=== PATIENT | male | born 1965 | race African-American/Black ===

== ENCOUNTER 2019-08-19 17:55 | Inpatient (IN) ==
[2019-08-19] MEDS ORDERED: NS 1,000 ML IV ONE (18:49)
[2019-08-19] MEDS ORDERED: CENTRUM SILVER PO ONE (18:52)
--- NOTE | 2019-08-19 18:55 | PROVIDER DOCUMENTATION ---
HPI-Neurological Disorder - General Chief Complaint: Dizziness Stated Complaint: DIZZINESS Time Seen by Provider: 08/19/19 18:26 Source: patient, family Allergies/Adverse Reactions: Patient Allergies Allergy/AdvReac Type Severity Reaction Status Date / Time No Known Allergies Allergy Verified 08/19/19 23:28 Home Medications: Home Medication List Medication Instructions Recorded Confirmed Last Taken Type Allopurinol [Zyloprim] 300 mg PO DAILY #30 tab 08/29/19 Unknown Rx Aspirin 81 mg PO DAILY #30 chewtab 08/29/19 Unknown Rx Cholecalciferol (Vit D3) [Vitamin 10,000 unit PO Q7D #30 cap 08/29/19 Unknown Rx D] Lisinopril [Zestril] 10 mg PO DAILY #30 tab 08/29/19 Unknown Rx Multivit,Fe,Ca,FA & Min [Thera M 1 ea PO DAILY #30 tab 08/29/19 Unknown Rx Plus] - History of Present Illness-Neuro Nature of Presenting Problem: 53 YO M pmh for leukemia, HTN, and chronic alcohol use presents with c/o dizziness that began today. Pt states he usually drinks 10-12 beers daily and has been doing so for the past 5 years. He has not had a drink in the last 3-4 days because he thought he had the flu and was sick. He states he gets dizzy when he stands up. Has not felt this way before. He denies having been in withdrawals before. Severity: reports: moderate Onset/Duration: reports: unsure Similar Symptoms Previously?: No Recently seen or treated by another doctor?: No Review of Systems - Adult - REVIEW OF SYSTEMS - ADULT Constitutional: reports: chills Eyes: reports: no symptoms reported Ears, Nose, Mouth & Throat: reports: no symptoms reported Cardiovascular: reports: no symptoms reported Respiratory: reports: no symptoms reported Gastrointestinal: reports: no symptoms reported Genitourinary: reports: no symptoms reported Musculoskeletal: reports: no symptoms reported Neurological: reports: dizziness/vertigo, loss of balance. denies: tremors Past History - Adult - PAST MEDICAL HISTORY-ADULT Review of Records: reports: Old Records Reviewed, Medications Reviewed, Social history reviewed & non-contributory. Cardiovascular: reports: HTN - FAMILY HISTORY Family History: reviewed, not pertinent - SOCIAL HISTORY Smoking: denies Alcohol Use Frequency: every day Number of drinks per typical drinking period:: 11-15 drinks Living Situation: family Physical Exam- Neurological - Physical Exam-Neuro Initial Vital Signs Reviewed: Yes General Appearance: alert, mild distress Eye Exam: bilateral eye: other (scleral icterus) HENMT: normocephalic/atraumatic, moist mucous membranes Head Injury: no evidence of injury Neck: supple Respiratory: lungs clear, normal breath sounds Cardiovascular: tachycardia Abdominal Exam: non tender, soft. 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 hearing, PERRL Coordination/Gait: negative Romberg's sign Motor/Sensory: no motor deficit, no sensory deficit, no pronator drift Neurologic: grossly normal Integumentary: normal turgor, warm/dry Psych/Mental Status: normal mood/affect, normal thought content, oriented x 3 - Glascow Coma Scale Best Eye Response: (4) open spontaneously Best Verbal Response: (5) oriented Best Motor Response: (6) obeys commands Progress - PLAN OF CARE/RESULTS Progress/Plan/Lab Results: Orders Category Date Time [facility] Routine AdmDCTranf 08/20/19 01:02 Active Activity - Up with Assistance ORDERED Care 08/20/19 01:02 Completed ED: Orthostatic Vital Signs (E DIRECTED Care 08/19/19 18:36 Completed Intake and Output-Strict Q 8-HR ASSESS Care 08/20/19 01:02 Completed Nursing- MD Consult Request ROUTINE Care 08/20/19 01:02 Completed Orthostatic Vital Signs NOW Care 08/19/19 18:03 Completed Saline Loc NOW Care 08/19/19 18:49 Completed Transfuse .Give-Transfuse Care 08/19/19 23:13 Completed Vital Signs Order Q 4-HR ASSESS Care 08/20/19 01:02 Completed Z-Document. for Tele Applied ORDERED Care 08/20/19 01:02 Completed Physician/Provider Consults Routine Cons 08/20/19 01:02 Ordered NPO Diet 08/20/19 01:03 Completed CHEST-2 VIEWS [RAD] Stat Exams 08/19/19 22:31 Completed ANTIBODY IDENTIFICATION [BBK] Stat Lab 08/19/19 19:33 Completed CBC WITH DIFF [HEME] Routine Lab 08/21/19 07:05 Completed CBC WITH ELECTRONIC DIFF [HEME] Stat Lab 08/19/19 19:33 Completed CBC WITH ELECTRONIC DIFF [HEME] Stat Lab 08/19/19 21:16 Completed COMPREHENSIVE METABOLIC PANEL [CHEM] Stat Lab 08/19/19 19:33 Completed Flu Swab [INFLUENZA SCREEN A/B] Stat Lab 08/19/19 19:40 Completed LACTATE, PLASMA [CHEM] Stat Lab 08/19/19 21:16 Completed PRBC [LRPC (RED CELLS)] [BBK] Stat Lab 08/19/19 19:33 Completed TYPE & SCREEN [BBK] Stat Lab 08/19/19 19:33 Completed 0.9% Sodium Chloride Inj [Ns] 1,000 ml Med 08/19/19 18:49 Discontinued IV 999 mls/hr Acetaminophen [Tylenol] Med 08/20/19 01:02 Discontinued 650 mg PO Q6H PRN PRN Multivitamins/Minerals [Centrum Silver] Med 08/19/19 18:52 Discontinued 1 each PO NOW ONE Ondansetron [Zofran] Med 08/20/19 01:02 Discontinued 4 mg IV Q4H PRN PRN Telemetry [OM.EQ] Routine Oth 08/20/19 01:02 Active EKG [EKG] Stat Ther 08/19/19 20:18 Draft Transfer/Admit Order [TRANSFER] Routine Transfer 08/20/19 00:23 Completed Result Diagrams: 08/29/19 07:04 08/29/19 07:04 - REASSESSMENT Reassessment #1 Status: other (labs reviewed.spoke with Dr. Allison who states pt needs blood transfusion for low hemoglobin. will plan for admission) - CONSULTS/PCP/HOSPITALIST Notification #1 *Consult/PCP/Hospitalist*: Spoke with Dr. Han Time Discussed: 22:50 Consult Disposition: Admit, other (admit and transfuse, will see in the morning) #2 Consult: Dr. Shoemaker Time Discussed: 23:13 Consult Disposition: Will see in ED, Admit Departure - Departure Date of Disposition Decision: 08/19/19 Time of Disposition Decision: 22:52 DIAGNOSIS: Anemia, Chronic alcohol use Disposition: ADMITTED INPATIENT 09 Certified Medical Emergency: Emergent Condition: Stable - Critical Care Note This patient required my direct & personal management of CC.: No Attestation - Physician/ DIMA Attestation Patient care was provided by Advanced Practice Provider:: No The physician spent face to face time with patient:: Yes Advanced Practice Provider documentation review:: Supervising physician onsite and consulted in the evaluation and care of this patient. The physician did have a face to face encounter with the patient.
[2019-08-19 20:12] LABS: BASO# 0.02 X1000 (0.0-0.2); EOS# 0.04 X1000 (0.0-0.7); HEMATOCRIT 16.2 % (42.0-52.0); HEMOGLOBIN 4.5 g/dL (14.0-18.0); LYMPH# 137.56 X1000 (1.2-3.4); LYMPH% 92.3 % (20.5-51.1); MCH 38.5 PG (27-31); MCHC 27.8 g/dL (33-37); MONO# 3.13 X1000 (0.11-0.59); MONO% 2.1 % (1.7-9.3); MPV 9.8 FL (7.4-10.4); NEUT# 8.26 X1000 (1.4-6.5); NEUT% 5.6 % (42.2-75.2); PLT 157 X1000 (130-400); RBC 1.17 XMIL (4.7-6.1); WBC 149.01 X1000 (4.8-10.8)
[2019-08-19 20:21] LABS: ESTIMATED GFR > 60
--- NOTE | 2019-08-19 20:21 | EKG Report ---
Test Performed on : 08/19/2019 7:20:39 PM Test Reason : cp Blood Pressure : / mmHG Vent. Rate : 116 BPM Atrial Rate : 116 BPM P-R Int : 124 ms QRS Dur : 080 ms QT Int : 358 ms P-R-T Axes : 076 056 033 degrees QTc Int : 497 ms Sinus tachycardia. Nonspecific ST and T wave abnormality Abnormal ECG When compared with ECG of 19-AUG-2019 18:19, (Unconfirmed) Nonspecific T wave abnormality, worse in Lateral leads Unconfirmed Result
[2019-08-19 20:24] LABS: BANDS 2 % (0-1); LYMPHS 92 % (21-51); NRBC 3 % (0-0); SEGS 6 % (42-75)
[2019-08-19 20:25] LABS: HYPOCHROM 3+
[2019-08-19 20:30] LABS: ANISOCYTOSIS 3+
[2019-08-19 20:38] LABS: AGAP 21; ALB/GLOB RATIO 2.2; ALBUMIN 4.1 g/dL (3.5-5.0); ALKALINE PHOSPHATASE 106 U/L (32-122); BUN 11 mg/dL (8-22); CALCIUM 8.5 mg/dL (8.8-10.2); CHLORIDE 89 mmol/L (98-107); COSMO 258; CREATININE 0.8 mg/dL (0.7-1.2); GLUCOSE 127 mg/dL (70-104); GOT 55 U/L (10-34); GPT 17 U/L (10-44); POTASSIUM 3.7 mmol/L (3.5-5.1); SODIUM 128 mmol/L (136-145); TCO2 18 mmol/L (25-35); TOTAL BILIRUBIN 9.09 mg/dL (0.20-1.00)
[2019-08-19 22:21] LABS: BASO# 0.34 X1000 (0.0-0.2); BASO% 0.2 % (0.0-0.8); EOS# 0.02 X1000 (0.0-0.7); HEMATOCRIT 15.3 % (42.0-52.0); HEMOGLOBIN 4.2 g/dL (14.0-18.0); IMM GRAN# 0.55 X1000 (0.0-0.04); IMM GRAN% 0.4 % (0.0-0.5); LYMPH# 128.37 X1000 (1.2-3.4); LYMPH% 93.2 % (20.5-51.1); MCH 38.2 PG (27-31); MCHC 27.5 g/dL (33-37); MONO# 1.04 X1000 (0.11-0.59); MONO% 0.8 % (1.7-9.3); MPV 10.1 FL (7.4-10.4); NEUT# 7.37 X1000 (1.4-6.5); NEUT% 5.4 % (42.2-75.2); PLT 149 X1000 (130-400); RDW 31.2 % (11.5-14.5); WBC 137.69 X1000 (4.8-10.8)
[2019-08-20] MEDS ORDERED: ZOFRAN IV PRN (01:02)
[2019-08-20] MEDS ORDERED: TYLENOL PO PRN (01:02)
[2019-08-20] MEDS ORDERED: M.V.I.-12 10 ML, FOLIC ACID 1 MG, MAGNESIUM SULFATE 1 GM, THIAMINE 100 MG in NS 1,000 ML IV ONE (01:05)
[2019-08-20] MEDS ORDERED: ATIVAN IV ONE (01:30)
--- NOTE | 2019-08-20 01:42 | HISTORY AND PHYSICAL ---
PRIMARY CARE PHYSICIAN: Dr. Velazquez CHIEF COMPLAINT: Dizziness. HISTORY OF PRESENTING ILLNESS: A 53-year-old male with a history of leukemia, hypertension, chronic alcoholism, who had presented to the emergency department due to the patient having episodes where he was feeling dizzy and almost fainted. He was brought to the emergency department. He had laboratories drawn, which did show he was profoundly anemic. The patient was started blood transfusion in the ED, and he will require admission for further management. At the time of my examination the patient denied any headache, fever, chills, chest pain, shortness of breath, any weight changes, or any blood in stools; however, he states that he still feels somewhat dizzy. PAST MEDICAL HISTORY: Includes leukemia, hypertension, chronic alcoholism. PAST SURGICAL HISTORY: None. ALLERGIES: No known drug allergies. CURRENT MEDICATIONS: He does not recall, nursing staff will reconcile. SOCIAL HISTORY: A [id number] history of smoking. Admits to drinking beers every day. Denies any illicit drug use. FAMILY HISTORY: No history of coronary disease. REVIEW OF SYSTEMS: A fourteen point review of systems is as listed in the HPI. Other review of systems negative. PHYSICAL EXAMINATION: GENERAL: A cooperative friendly male. He is resting more comfortably now. VITAL SIGNS: Temperature 98 degrees, pulse 110, respirations 19, blood pressure 111/54. HEENT: Atraumatic, normocephalic. Extraocular movements are intact. PERRLA. There is some scleral icterus. NECK: No masses. CHEST: Clear to auscultation. CARDIOVASCULAR: Regular rate and rhythm. ABDOMEN: Soft. Positive bowel sounds. EXTREMITIES: No edema. NEUROLOGIC: She is awake, alert and oriented x3. : No bladder distention. SKIN: Warm. LABORATORIES AND STUDIES: WBC is 137.69, hemoglobin is 4.2, hematocrit is 15.3, platelet count 149,000. Sodium 128, potassium 3.9, chloride 89, CO2 is 18, BUN is 11, creatinine 0.8, glucose 127. ASSESSMENT: This is a 53-year-old male with a history of leukemia, hypertension, chronic alcoholism, who had presented to the emergency department due to the patient having episodes where he was dizzy and nearly fainted. He was brought to the emergency department. He was found to be profoundly anemic. Subsequently he will require admission for further management. 1. Anemia unspecified. 2. Leukemia. 3. Hypertension. 4. Chronic alcoholism. PLAN: 1. We will admit the patient to the medical floor with telemetry. 2. The patient was started on blood transfusion, we will continue that. 3. We will monitor hemoglobin and hematocrit closely. 4. We will consult Oncology. 5. We will monitor blood pressure closely. 6. We will give the patient a banana bag. 7. We will put the patient on DVT prophylaxis with SCDs. 8. We will continue to follow, reassess and make further recommendation based on the patient's clinical course. cc: Lionel Shoemaker MD MTDD
[2019-08-20] MEDS ORDERED: NS 500 ML ONE (02:43)
--- NOTE | 2019-08-20 06:41 | Diag Imaging Result Doc PS360 ---
CHEST-2 VIEWS - 08/19/2019 INDICATION: dizziness COMPARISON: None FINDINGS: The lungs are normally expanded and clear. Heart size and mediastinal contours are normal. No pneumothorax or pleural effusion. IMPRESSION: Negative exam. Electronically signed by Jesus Lowe 08/20/2019 6:39 AM
--- NOTE | 2019-08-20 15:08 | PROGRESS NOTE ---
DATE: 08/20/2019 SUBJECTIVE: I evaluated him at bedside. His family members are at bedside. OBJECTIVE: Vital Signs: Temperature of 98.2 degrees, pulse 102, respiratory rate 18, blood pressure 124/60, saturating 99% on room air. General: Mr. Mesa complains of mild shortness of breath and dizziness on physical exertion. He denies any chest pain. He denies any melena. HEENT: He has significant scleral icterus. Lungs: Air entry bilaterally equal. No wheeze, rhonchi, or crackles. Heart: S1, S2 normal. No murmur or gallop. Abdomen: Soft, nontender. Extremities: No lower extremity edema. Neurologic: He is alert and oriented x3. LABORATORY DATA: Suggestive of leukocytosis, macrocytic anemia. He has hyponatremia, hypochloremia, hyperbilirubinemia, lactic acidosis. IMAGING: Chest x-ray did not have acute cardiopulmonary process. ASSESSMENT AND PLAN: 1. Lymphoid leukemia. 2. Anemia. Differential includes bone marrow failure due to leukemia, blood loss anemia due to meloxicam and alcohol use, hemolysis. 3. Hyponatremia, hypochloremia. 4. Lactic acidosis. 5. Alcohol abuse with ongoing active alcohol and tobacco abuse. He is receiving third unit of packed red blood cells, and my plan is to follow up blood count after that. I will also send out hemolysis panel, iron panel, and bilirubin. Appreciate Oncology Team's recommendation. Plan of care discussed with the patient. His questions have been answered. cc: Silvestre London MD [facility]
--- NOTE | 2019-08-20 17:03 | Diag Imaging Result Doc PS360 ---
EXAM: CT THORAX/ABD/PELVIS W/CON 08/20/2019 HISTORY: Hx CLL with Severe leukocytosis TECHNIQUE: This exam was performed using automated exposure control, adjustment of mA or kV according to patient size, and/or use of iterative reconstruction technique. COMMENT: The current study is compared with the previous examination of 03/25/2018 from [facility]. Thorax: There are numerous enlarged supraclavicular nodes bilaterally. This appears worse than on the previous examination there is a node adjacent to the jugular vein on the left on image five of the current study which measures in excess of 2.5 cm. Previously this measured 2.1 cm. The nodes are more numerous in appearance as well. There is bilateral axillary adenopathy which also appears to be worsened. There is a node on the left on image 43 which measures 2.5 cm in AP dimension and which previously was less than 1.9 cm. There is a node in the right axilla on image 49 which has increased in long and short axis dimension, the latter measuring almost 12 mm compared to slightly over 6 mm at the time the previous study. There is mediastinal adenopathy particularly in the aorticopulmonary window and in both ke which has also worsened since the previous study. There is a node in the left hilum on image 59 which measures in excess of 2.2 cm in AP dimension. This measured less than 1.7 cm previously. There is a tiny right pleural effusion in the posterior costophrenic sulcus. There are some patchy groundglass opacities present particularly in the right lower lobe and left upper lobe. This was not the case previously. This may represent pneumonitis, atypical pneumonia, or pulmonary edema. ABDOMEN: There is gastrohepatic adenopathy and periportal adenopathy both of which appear worse than on the previous study. There is extensive retroperitoneal adenopathy and mesenteric adenopathy. The node present on image 82 of the arterial series measures 3 cm in diameter transversely. This previously measured slightly less than 3 cm. The spleen is enlarged measuring 13.4 cm in anterior posterior dimension. Previously it measured 11.1 cm. There is some pericholecystic fluid. There are no apparent stones. This was not the case at the time the previous study. The liver is slightly larger than it was previously measuring 25.3 cm transversely compared to 24.5. There is a right adrenal nodule which was also apparently present at the time the previous study. There is a large portacaval node which in short axis anterior posterior dimension measures 2.3 cm compared to 1.8 cm in short axis previously. The aorta is not distended. There is some atherosclerotic calcification distally. The mesenteric and renal arteries are patent. There is some periportal edema. The kidneys are without evidence of hydronephrosis or mass. The pancreas aside from the surrounding adenopathy is stable in appearance. There is no evidence of bowel obstruction. Pelvis: The appendix is not distended. There is no evidence of free fluid. There is bilateral external iliac and inguinal adenopathy. This is worse than on the previous study. The regional skeleton is stable in appearance. IMPRESSION: Worsened adenopathy and splenomegaly. Patchy groundglass pulmonary opacities. Pericholecystic fluid and mild periportal edema of uncertain significance. Electronically signed by Tk Gold 08/20/2019 5:01 PM
[2019-08-20 18:51] LABS: DIRECT BILIRUBIN 0.9 mg/dL (0.00-0.20); URIC ACID 6.6 mg/dL (3.4-7.0)
[2019-08-20 18:52] LABS: AGAP 14; ALB/GLOB RATIO 1.4; ALBUMIN 3.6 g/dL (3.5-5.0); ALKALINE PHOSPHATASE 90 U/L (32-122); BUN 11 mg/dL (8-22); CHLORIDE 97 mmol/L (98-107); COSMO 263; CREATININE 0.7 mg/dL (0.7-1.2); ESTIMATED GFR > 60; GLUCOSE 112 mg/dL (70-104); GOT 58 U/L (10-34); GPT 20 U/L (10-44); POTASSIUM 3.8 mmol/L (3.5-5.1); SODIUM 131 mmol/L (136-145); TCO2 20 mmol/L (25-35); TOTAL BILIRUBIN 6.18 mg/dL (0.20-1.00); TOTAL PROTEIN 6.2 g/dL (6.3-8.3)
[2019-08-20 18:53] LABS: IRON SATURATION 29 %; TIBC 271 ug/dL; TOTAL IRON 79 ug/dL (53-167); UNBOUND IRON 192 ug/dL (112-346)
[2019-08-20 19:09] LABS: FERRITIN 583 ng/mL (30-400)
[2019-08-20 19:16] LABS: BASO# 0.37 X1000 (0.0-0.2); BASO% 0.3 % (0.0-0.8); EOS# 0.02 X1000 (0.0-0.7); HEMATOCRIT 24.4 % (42.0-52.0); HEMOGLOBIN 7.1 g/dL (14.0-18.0); IMM GRAN# 0.43 X1000 (0.0-0.04); IMM GRAN% 0.3 % (0.0-0.5); LYMPH# 124.44 X1000 (1.2-3.4); LYMPH% 92.1 % (20.5-51.1); MCH 32.7 PG (27-31); MCHC 29.1 g/dL (33-37); MCV 112.4 FL (81-99); MONO# 3.57 X1000 (0.11-0.59); MONO% 2.6 % (1.7-9.3); MPV 9.9 FL (7.4-10.4); NEUT# 6.23 X1000 (1.4-6.5); NEUT% 4.7 % (42.2-75.2); PLT 134 X1000 (130-400); RBC 2.17 XMIL (4.7-6.1); RDW 30.6 % (11.5-14.5); WBC 135.06 X1000 (4.8-10.8)
[2019-08-20 19:27] LABS: HYPOCHROM 3+; LYMPHS 92 % (21-51); NRBC 5 % (0-0); SEGS 8 % (42-75)
[2019-08-21 08:10] LABS: BASO# 0.23 X1000 (0.0-0.2); BASO% 0.2 % (0.0-0.8); EOS# 0.02 X1000 (0.0-0.7); HEMATOCRIT 23.3 % (42.0-52.0); HEMOGLOBIN 6.5 g/dL (14.0-18.0); IMM GRAN# 0.19 X1000 (0.0-0.04); IMM GRAN% 0.2 % (0.0-0.5); LYMPH# 108.51 X1000 (1.2-3.4); LYMPH% 92.7 % (20.5-51.1); MCH 32.3 PG (27-31); MCHC 27.9 g/dL (33-37); MCV 115.9 FL (81-99); MONO# 2.71 X1000 (0.11-0.59); MONO% 2.3 % (1.7-9.3); MPV 9.7 FL (7.4-10.4); NEUT% 4.6 % (42.2-75.2); PLT 120 X1000 (130-400); RBC 2.01 XMIL (4.7-6.1); WBC 117.06 X1000 (4.8-10.8)
[2019-08-21] MEDS ORDERED: MARCAINE 0.5% PF ONE (08:15)
[2019-08-21 08:22] LABS: AGAP 13; ALB/GLOB RATIO 1.9; ALBUMIN 3.6 g/dL (3.5-5.0); ALKALINE PHOSPHATASE 80 U/L (32-122); BUN 11 mg/dL (8-22); CALCIUM 8.2 mg/dL (8.8-10.2); CHLORIDE 100 mmol/L (98-107); COSMO 268; CREATININE 0.6 mg/dL (0.7-1.2); ESTIMATED GFR > 60; GLUCOSE 102 mg/dL (70-104); GOT 49 U/L (10-34); GPT 21 U/L (10-44); POTASSIUM 3.8 mmol/L (3.5-5.1); SODIUM 134 mmol/L (136-145); TCO2 21 mmol/L (25-35); TOTAL BILIRUBIN 6.75 mg/dL (0.20-1.00); TOTAL PROTEIN 5.5 g/dL (6.3-8.3)
[2019-08-21] MEDS ORDERED: DIPRIVAN 1% ONE ×2 (08:23→10:30)
[2019-08-21] MEDS ORDERED: XYLOCAINE-MPF 2% ONE (08:24)
[2019-08-21] MEDS ORDERED: FENTANYL ONE (08:25)
[2019-08-21] MEDS ORDERED: VITAMIN B-1 PO SCH (09:00)
[2019-08-21 10:00] LABS: ANISOCYTOSIS 3+; HYPOCHROM 2+; LYMPHS 92 % (21-51); MONO 2 % (1-9); NRBC 7 % (0-0); POLYCHROM 2+; SEGS 6 % (42-75)
[2019-08-21 10:01] LABS: HOWELL-JOLLY BODIES 1+; POIKILOCYTOSIS 1+
[2019-08-21] MEDS ORDERED: VERSED ONE (10:03)
[2019-08-21 10:47] LABS: FLOW CYTOMETERY SOURCE BONE MARROW; LEUKEMIA LYMPHOMA BY FLOW REFERRED FOR TESTING
[2019-08-21 12:47] LABS: INR 1.21; PROTIME 15.5 Seconds (11.0-16.0); PTT 30.3 Seconds (22.3-41.8)
[2019-08-21 13:02] LABS: RETIC% 33.72 % (0.8-2.1); RETIC-HE 38.7 PG (28.2-36.6)
[2019-08-21] MEDS ORDERED: LASIX IV ONE (14:06)
[2019-08-21] MEDS: THERA M PLUS PO SCH (14:59)
[2019-08-21 15:11] LABS: URINE SOURCE CATH
[2019-08-21 15:15] LABS: BILIRUBIN URINE SMALL (NEGATIVE); BLOOD URINE SMALL (NEGATIVE); COLOR ORANGE; GLUCOSE URINE NEGATIVE (NEGATIVE); KETONE URINE NEGATIVE (NEGATIVE); LEUKOCYTES URINE NEGATIVE (NEGATIVE); NITRITE URINE NEGATIVE (NEGATIVE); PROTEIN URINE TRACE mg/dL (NEGATIVE); SP GRAVITY URINE 1.019; TURBIDITY URINE CLEAR (CLEAR); UR EPITHELIAL CELLS <10 /HPF (<10); URINE BACTERIA NEGATIVE /HPF; URINE RBC <10 /HPF (<10); URINE WBC <10 /HPF (<10); UROBILINOGEN URINE 3 mg/dL (NORMAL)
--- NOTE | 2019-08-21 15:28 | Diag Imaging Result Doc PS360 ---
EXAM: CT HEAD W/O CONTRAST 08/21/2019 HISTORY: Rule out occipital/cerebellar infarct TECHNIQUE: This exam was performed using automated exposure control, adjustment of mA or kV according to patient size, and/or use of iterative reconstruction technique. COMMENT: There is no evidence of mass effect, bleed, or abnormal extra-axial fluid collection. There is what appears to be a lacune in the juan near the left middle cerebellar peduncle. This measures almost 6 mm in diameter. There is a mucous retention cyst in the right sphenoid sinus. The calvarium is intact. IMPRESSION: Lacune in the juan. The possibility of acute ischemia cannot be entirely excluded on the basis of this study and further evaluation with MRI may be desirable. Electronically signed by Tk Gold 08/21/2019 3:26 PM
--- NOTE | 2019-08-21 16:15 | PROGRESS NOTE ---
DATE: 08/21/2019 INTERVAL HISTORY: No acute events overnight. He did have a drop in his hemoglobin and the Oncology team has ordered two units of blood as well as fresh frozen plasma. SUBJECTIVE: Mr. Mesa is denying new complaints. He denies any chest pain, shortness of breath, nausea, vomiting, abdominal pain. He is hungry and wanted to eat. We discussed about his leukemia. I answered all of his questions. We discussed about neck vein engorgement and anemia and I told him that his leukemia is bad enough to kill him. VITALS: Temperature 98.2 degrees, pulse 92, respiratory rate 14, blood pressure 104/53. PHYSICAL EXAMINATION: General: Not in any acute distress. Mouth: Oral cavity is moist. Lungs: Air entry bilaterally equal. No wheeze, rhonchi, or crackles. Cardiovascular: S1, S2 normal. No murmur or gallop. Abdomen: Soft, nontender. Active bowel sounds. Extremities: He does not have any lower extremity edema. Neck: He has significant neck vein distention. Neurological: He is alert and oriented x3. He does appear tremulous, especially in his face and head. Pupils are bilaterally equal, reacting to light. Extraocular movements intact both downwards and laterally of midline. He does have left-sided squint that I did not notice previously. He does have right-sided flattening of nasolabial fold. His cough and speech appear normal. His tongue is midline. Sensation is equal bilateral upper and lower extremity and face. Shoulder shrug is normal. His power is 5/5 in both upper and lower extremities at shoulder, knee, interphalangeal, hip, and elbow joints as well as ankle joints. Babinski has plantar flexion. Reflexes are 2+ bilateral biceps and knee jerks. [id number] test nose testing is normal bilaterally. LABS: Suggestive of WBC of 117,000, hemoglobin 6.5, platelet 120,000. He has elevated D-dimer. Electrolytes are normal. He continues to have hyperbilirubinemia, elevated lactate dehydrogenase and low haptoglobin. Microbiology: Influenza screen has been negative. IMAGING: Chest, abdomen, pelvis CT had detected adenopathy, worsened adenopathy and splenomegaly, patchy ground-glass pulmonary opacities, pericholecystic fluid and mild peripheral edema of uncertain significance. ASSESSMENT AND PLAN: 1. Lymphoid leukemia. The patient was diagnosed many years ago but was noncompliant with followup. He is status post bone marrow biopsy on 08/21/2019. Appreciate Oncology team's recommendation regarding treatment. 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 Start patient on IV antibiotics. 3. Thrombocytopenia: No signs of active bleeding. I will watch the platelet counts. 4. Suspicion of cerebrovascular accident. I will follow up with STAT head CT to rule out any brainstem or occipital infarct. In future I may consider getting an MRI. 5. Alcohol abuse with delirium tremens. I will start patient on high-dose intravenous thiamine as well as Librium. DISPOSITION: Mr. Mesa's condition is marginal and considering his leukemia, hemolytic anemia, and now neurological abnormalities along with delirium tremens, I will get a STAT head CT and transfer him to [facility]. Plan of care discussed with Mr. Mesa and his mother at bedside. They were allowed to ask questions and all of their questions were satisfactorily answered. cc: Silvestre London MD MTDD
--- NOTE | 2019-08-21 16:47 | Diag Imaging Result Doc PS360 ---
EXAM: MRI BRAIN W/O CONTRAST INDICATION: Evaluate for Acute CVA in Randa COMPARISON: CT head dated 08/21/2019. No prior dedicated MRI is available for comparison. FINDINGS: There is no evidence of acute infarct. There is a chronic lacunar infarct involving the randa on the left that was also seen on the previous CT. There are a few patchy areas of T2/FLAIR hyperintensity in the subcortical white matter bilaterally suggesting minimal microangiopathy. There is no discrete intracranial mass, mass effect, or intracranial hemorrhage. There are several prominent lymph nodes seen incidentally in the parotid glands and the suboccipital region in the soft tissues related to known CLL. Surrounding soft tissues and bony structures are essentially unremarkable, otherwise. IMPRESSION: 1.Very minimal white matter microangiopathy and a chronic lacunar infarct involving the randa on the left. No evidence of acute intracranial pathology. 2.Incidental soft tissue lymphadenopathy in the neck and at the skull base in the soft tissues consistent with known CLL. Electronically signed by Fausto Forrester 08/21/2019 4:44 PM
--- NOTE | 2019-08-21 16:52 | Diag Imaging Result Doc PS360 ---
EXAM: MRA BRAIN W/O CONTRAST INDICATION: Rule out CVA TECHNIQUE: 3-D [id number] axial images through the [place] of [place] and 3-D MIPS were obtained. COMPARISON: None. FINDINGS: The arteries comprising the [place] of [place] including the anterior, middle, and posterior cerebral arteries exhibit no flow-limiting stenosis, vascular malformation, or cerebral aneurysm. The distal ICAs and the distal vertebral arteries are widely patent. The basilar artery is widely patent. IMPRESSION: No evidence of cerebral flow-limiting stenosis. Electronically signed by Fausto Forrester 08/21/2019 4:50 PM
[2019-08-21] MEDS ORDERED: SOLU-MEDROL IV ONE (17:00)
--- NOTE | 2019-08-21 18:12 | HEMO/ONC CONSULTATION ---
DATE: 08/20/2019 ADMITTING PHYSICIAN: Dr. Lionel Shoemaker REQUESTING PHYSICIAN: Dr. Lionel Shoemaker CHIEF COMPLAINT: History of CLL, now with probable acute leukemia. HISTORY OF PRESENT ILLNESS: Mr. Sohail Mesa is a 53-year-old male with a history of chronic leukemia, hypertension, chronic alcoholism. The patient presented to [facility] Emergency Department with complaints of episodes of dizziness and near fainting. The patient was found to be profoundly anemic on admission with a hemoglobin of 4.2. Additionally, white blood cell count was found to be profoundly elevated to 137.69. The patient does have a history of CLL followed by Dr. Duran of [facility]. The patient, however, is noncompliant with followups. Currently the patient is lying supine in bed. He denies recent fever or chills. He denies weight loss. He is on alcohol withdrawal precautions. We are consulted for probable transformation into acute leukemia. PAST MEDICAL HISTORY: As in HPI. PAST SURGICAL HISTORY: None. MEDICATIONS ON ADMISSION: The patient does not recall. Reconciliation is pending. ALLERGIES: No known drug allergies. REVIEW OF SYSTEMS: A 14 point review of systems was obtained and is negative except for mentioned in HPI. PHYSICAL EXAMINATION: General: Mr. Mesa is a 53-year-old male lying supine in bed in no immediate distress. Vital Signs: Temperature 98.3, blood pressure 134/73, heart rate and heart rate 103, respirations 18, O2 saturation 100% on room air. HEENT: Normocephalic, atraumatic. Mucous membranes pale and moist. Sclerae is icteric. Extraocular movements intact. Neck: Supple. Lungs: Clear to auscultation bilaterally. Chest expansion equal bilaterally. Cardiovascular: S1, S2 is heard without murmur, rub or gallop. Abdomen: Nondistended. Extremities: Without clubbing, cyanosis, or edema. Dermatologic: No rashes, bruises or lesions. Neurologic: The patient is awake, alert, oriented x3. He has no focal deficit. LABORATORY DATA: Hemoglobin 4.2, hematocrit 15.3, white blood cell count 137.69, platelets 149. ANC 7.37, ALC 128.37, bilirubin 9.09, alkaline phosphatase 106, AST 55, ALT 17. IMAGING STUDIES: Chest x-ray reveals negative acute abnormality. ASSESSMENT AND PLAN: 1. History of chronic lymphocytic leukemia, now with likely progression to acute leukemia. We will check a CT of the chest, abdomen, and pelvis at this time. We will order a bone marrow biopsy and aspiration. Treatment plan to follow workup. 2. Chronic EtOH abuse, known. The patient is currently on withdrawal precautions. 3. Profound anemia. The patient is for 3 units packed red blood cells. Would monitor. If the patient needs additional packed red blood cells, will also transfuse fresh frozen plasma. 4. Hypertension, stable at this time. 5. Hyperbilirubinemia. We will check a CT of the chest, abdomen, and pelvis at this time. 6. We will follow along with you and make further recommendations pending outcomes. This is Amalia Calle nurse practitioner dictating a consult on Sohail Mesa for Dr. Andrey Solis. The above reflects the history, exam, assessment, and plan of Dr. Solis. Dictated by ANTON Amato for Andrey Solis MD cc: ANTON Amato MD
[2019-08-21] MEDS: THIAMINE 500 MG in NS 50 ML IV SCH ×2 (18:18→23:19)
[2019-08-21] MEDS: LIBRIUM PO SCH (18:24)
[2019-08-21] MEDS ORDERED: PREDNISONE PO SCH (21:00)
[2019-08-22 06:29] LABS: CHOLESTEROL 83 mg/dL (0-200); HDL 22 mg/dL (35-55); LDL 44 mg/dL; TRIGLYCERIDES 84 mg/dL (39-160); VLDL 17 mg/dL
[2019-08-22 06:34] LABS: AGAP 12; ALB/GLOB RATIO 1.3; ALBUMIN 3.2 g/dL (3.5-5.0); ALKALINE PHOSPHATASE 75 U/L (32-122); BUN 10 mg/dL (8-22); CHLORIDE 100 mmol/L (98-107); COSMO 271; CREATININE 0.5 mg/dL (0.7-1.2); ESTIMATED GFR > 60; GLUCOSE 124 mg/dL (70-104); GOT 39 U/L (10-34); GPT 21 U/L (10-44); POTASSIUM 3.8 mmol/L (3.5-5.1); SODIUM 135 mmol/L (136-145); TCO2 23 mmol/L (25-35); TOTAL BILIRUBIN 4.95 mg/dL (0.20-1.00); TOTAL PROTEIN 5.7 g/dL (6.3-8.3)
[2019-08-22] MEDS: THIAMINE 500 MG in NS 50 ML IV SCH ×3 (09:01→23:36)
[2019-08-22] MEDS: PREDNISONE PO SCH ×2 (09:01→20:36)
[2019-08-22] MEDS: THERA M PLUS PO SCH (09:01)
[2019-08-22] MEDS: LIBRIUM PO SCH ×3 (09:01→16:09)
--- NOTE | 2019-08-22 10:45 | CONSULTATION ---
DATE OF CONSULTATION: 08/22/2019 HISTORY OF PRESENT ILLNESS: Mr. Mesa has CLL, hypertension, history of ethanol use disorder. He had not been taking his medicines in recent months. He presented with WBC 135,000, hemoglobin 4.2, sodium 135. He had reported some dizziness. He reports he awoke 4 days ago feeling well. Shortly after getting up, while walking, he felt suddenly dizzy. There was a little bit of lightheadedness and "about to blackout" sensation. He felt a little bit clumsy in the limbs, but he did not notice focal weakness, focal clumsiness, vision disturbance, speech difficulty, swallowing trouble or headache. He did not collapse. There was never altered consciousness or altered awareness. He sat down and rested for 10 or 15 minutes and felt better. Then, he was able to walk without difficulty. Eventually, he presented to the hospital and was admitted. There is no history of prior clinical stroke, prior similar episode of dizziness, other neurologic event. He has had some headaches, but did not have headache when chief complaint occurred. He reports he had not used ethanol in at least 24 hours when this episode occurred. Brain MRI showed lacunar lesion in the left juan. This appears old. Brain MRA was unremarkable. We do not have any prior scans for comparison here. He reports having a scan of his head 5 or 6 years ago in [place] when he presented with problems related to his hypertension. He does not recall having any focal neurologic features then. He has been afebrile here. Systolic blood pressures have ranged 90s-130s. PHYSICAL EXAMINATION: Neurologic: On exam, Mr. Mesa is awake, alert, attentive, appropriate. Speech is not dysarthric. Language function is intact. Memory is good. Head and neck are unremarkable. Visual leon are full to confrontational finger counting. Extraocular movements are full. Facial motility is symmetric. Tongue is midline. Gag is intact. He can hear. Shoulder shrug is good bilaterally. He has difficulty raising his right arm at the shoulder. Strength is normal in the left limbs. I do not find any definite weakness in the right limbs beyond what appears to be shoulder joint problem. There is normal power in the triceps, wrist extensor, finger extensors and spreaders bilaterally. Tone is equal in the arms and legs. He did well on [id number] testing bilaterally. He reports symmetric sensation over the limbs. I did not test his gait. IMPRESSION: 1. Dizziness without focal features. This occurred while standing and he felt better when sitting. I do not think this was a primary central nervous system event. 2. 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 He may or may not have ever been symptomatic with this lesion, but I feel certain this is not the explanation for his episode 4 days ago. 3. We discussed his risk factors for cerebrovascular ischemic problems. I strongly encouraged him to quit smoking cigarettes, to keep appointments with his doctors and to take his medicines as directed. He reports taking aspirin 81 mg daily in the past and if there is not Heme-Onc contraindication, I think that could be resumed. I do not have any other suggestion right now. Thanks for asking Neurology to see Mr. Mesa. cc: MD MONO Cali III
--- NOTE | 2019-08-22 12:26 | ECHO REPORT ---
ORDER DATE: 08/21/2019 INDICATION: Thrombus versus vegetation FINDINGS: 1. Right atrium appears normal in size. 2. Mild tricuspid regurgitation. RV systolic pressure of 37. 3. Normal RV size and systolic function. 4. No significant pulmonic insufficiency. 5. Normal left atrial size with a volume index of 20. 6. No mitral valve prolapse. Mild mitral regurgitation. There is thickening of the mitral leaflets with a mean gradient of 4.6 suggesting the possibility of mild mitral stenosis. 7. Normal LV size, end-diastolic dimension of 4.1 cm. Normal wall thicknesses with a posterior and interventricular septal wall thickness is 0.7 cm each. Normal LV systolic function. Estimated EF is 65% to 70% with normal wall motion. 8. Aortic valve opens well. It is trileaflet. No evidence of stenosis or insufficiency. 9. Aorta appears normal in visualized segments. 10. No pericardial effusion seen. 11. Normal diastolic function. 12. Normal IVC size. 13. If clinical suspicion for valvular vegetation is high, would recommend alternative modality for assessment such as transesophageal echocardiogram. I do not clearly see evidence of adherent valvular vegetation or thrombus. cc: MD Silvestre López MD
[2019-08-22 15:27] LABS: BASO# 0.27 X1000 (0.0-0.2); BASO% 0.2 % (0.0-0.8); HEMATOCRIT 23.1 % (42.0-52.0); HEMOGLOBIN 6.4 g/dL (14.0-18.0); IMM GRAN# 0.17 X1000 (0.0-0.04); IMM GRAN% 0.1 % (0.0-0.5); LYMPH# 114.93 X1000 (1.2-3.4); LYMPH% 93.1 % (20.5-51.1); MCH 32.8 PG (27-31); MCHC 27.7 g/dL (33-37); MCV 118.5 FL (81-99); MONO# 1.71 X1000 (0.11-0.59); MONO% 1.4 % (1.7-9.3); MPV 9.8 FL (7.4-10.4); NEUT% 5.2 % (42.2-75.2); PLT 116 X1000 (130-400); RBC 1.95 XMIL (4.7-6.1); RDW 32.4 % (11.5-14.5)
[2019-08-22 15:28] LABS: WBC 123.48 X1000 (4.8-10.8)
[2019-08-22 16:52] LABS: LYMPHS 89 % (21-51); NRBC 1 % (0-0); SEGS 8 % (42-75)
[2019-08-22 16:53] LABS: ANISOCYTOSIS 3+; HYPOCHROM 3+
[2019-08-22] MEDS: ZYLOPRIM PO SCH (17:38)
--- NOTE | 2019-08-22 18:54 | PROGRESS NOTE ---
DATE: 08/22/2019 INTERVAL HISTORY: No acute events overnight. SUBJECTIVE: Mr. Mesa is feeling better. He denies new complaints. His family is at bedside. He denies chest pain, shortness of breath, nausea, vomiting, abdominal pain. He is about to have a bowel movement. We discussed about acute leukemia, answered all of his questions. VITALS: Temperature 98.8 degrees, pulse 96, respiratory 18, blood pressure acceptable saturating 98% on nasal cannula. PHYSICAL EXAMINATION: Not in acute distress. Oral cavity is moist. Air entry bilaterally equal. No wheeze or crackles. S1 normal, no murmur or gallop.Abdomen: Soft, nontender. No hepatosplenomegaly. No lower extremity edema. He has significant cervical and supraclavicular lymphadenopathy. He is alert and oriented x3. LABS: Suggestive of elevated WBC to 123,000, hemoglobin 6.4, platelet 116,000, BUN 10, creatinine 0.5, bilirubin of 4.9. Microbiology no new data. Brain MRA had no evidence of cerebral flow-limiting stenosis. Brain MRI had very minimal white matter microangiopathy and chronic lacunar infarct involving juan on the left, no evidence of acute intracranial pathology. ASSESSMENT AND PLAN: 1. 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 Patient was previously noncompliant with her medication. Oncology team is planning chemotherapy on early next week, he is status post bone marrow biopsy in August 21. I will start him on allopurinol prophylactically. 2. Autoimmune hemolytic anemia. Continue oral steroids and follow up blood counts. 3. Thrombocytopenia currently stable. I will continue to monitor him with serial blood counts. 4. Chronic appearing juan cerebrovascular accident. He denies any known history of cerebrovascular accident though, I will start him on aspirin for secondary cerebrovascular accident prophylaxis. His cholesterol level is significantly low at the moment so I would avoid anti lipid medication. 5. Alcohol abuse with mild delirium tremens. Continue high-dose intravenous thiamine as well as Librium. DISPOSITION: I will continue to monitor patient inside PVC unit. Plan of care discussed with patient and multiple family members. All of their questions have been satisfactorily answered. cc: Silvestre London MD [facility]
[2019-08-23 07:00] LABS: AGAP 10; ALB/GLOB RATIO 1.6; ALBUMIN 3.3 g/dL (3.5-5.0); ALKALINE PHOSPHATASE 69 U/L (32-122); BUN 10 mg/dL (8-22); CALCIUM 8.2 mg/dL (8.8-10.2); CHLORIDE 102 mmol/L (98-107); COSMO 274; CREATININE 0.6 mg/dL (0.7-1.2); ESTIMATED GFR > 60; GLUCOSE 111 mg/dL (70-104); GOT 30 U/L (10-34); GPT 20 U/L (10-44); POTASSIUM 3.9 mmol/L (3.5-5.1); SODIUM 137 mmol/L (136-145); TCO2 25 mmol/L (25-35); TOTAL BILIRUBIN 4.29 mg/dL (0.20-1.00); TOTAL PROTEIN 5.4 g/dL (6.3-8.3)
[2019-08-23 08:02] LABS: BASO# 0.15 X1000 (0.0-0.2); BASO% 0.1 % (0.0-0.8); EOS# 0.01 X1000 (0.0-0.7); HEMATOCRIT 20.8 % (42.0-52.0); HEMOGLOBIN 6.1 g/dL (14.0-18.0); IMM GRAN# 0.14 X1000 (0.0-0.04); IMM GRAN% 0.1 % (0.0-0.5); LYMPH# 104.79 X1000 (1.2-3.4); LYMPH% 93.2 % (20.5-51.1); MCH 34.1 PG (27-31); MCHC 29.3 g/dL (33-37); MCV 116.2 FL (81-99); MONO# 2.13 X1000 (0.11-0.59); MONO% 1.9 % (1.7-9.3); MPV 10.4 FL (7.4-10.4); NEUT# 5.23 X1000 (1.4-6.5); NEUT% 4.7 % (42.2-75.2); PLT 115 X1000 (130-400); RBC 1.79 XMIL (4.7-6.1); RDW 31.1 % (11.5-14.5); WBC 112.45 X1000 (4.8-10.8)
[2019-08-23] MEDS ORDERED: ZYLOPRIM PO SCH (09:00)
[2019-08-23] MEDS: ASPIRIN PO SCH (09:04)
[2019-08-23] MEDS: ZYLOPRIM PO SCH (09:04)
[2019-08-23] MEDS: LIBRIUM PO SCH ×3 (09:04→16:52)
[2019-08-23] MEDS: PREDNISONE PO SCH ×2 (09:04→20:04)
[2019-08-23] MEDS: THIAMINE 500 MG in NS 50 ML IV SCH (09:04)
[2019-08-23] MEDS: THERA M PLUS PO SCH (09:04)
[2019-08-23 09:34] LABS: BANDS 1 % (0-1); SEGS 14 % (42-75)
[2019-08-23 09:35] LABS: ANISOCYTOSIS 3+; HYPOCHROM 1+
[2019-08-23 09:36] LABS: LYMPHS 85 % (21-51)
--- NOTE | 2019-08-23 10:53 | PROGRESS NOTE ---
DATE: 08/23/2019 INTERVAL HISTORY: No acute events overnight. SUBJECTIVE: Mr. Mesa denies new complaints. He denies any chest pain, shortness of breath. He states he is able to go to the bathroom. However, when he goes to the bathroom, he needs to keep his oxygen. Otherwise, he may feel a little short of breath. He denies any cough except occasional cough with whitish expectoration. VITAL SIGNS: Temperature 98.3 degrees, pulse 89, respiratory rate 20, blood pressure 170/51, saturating 98% on 2 L nasal cannula. PHYSICAL EXAMINATION: General: He is not in acute distress. HEENT: Oral cavity is moist. Lungs: He has decreased lung sounds on the lower lung leon, especially infrascapular region. Cardiovascular: S1, S2 normal. No murmur, rub, or gallop. Lymphatics: He has supraclavicular lymphadenopathy. Abdomen: Soft, nontender. Extremity: No lower extremity edema. Neurologic: He is alert and oriented x3. INPUT AND OUTPUT: Suggests he ate 75% of his meals. He has not had any documented bowel movements. LABORATORY DATA: Suggestive of leukocytosis, hemoglobin of 6.1, platelet 115,000. Normal creatinine. MICROBIOLOGY: No new data. IMAGING: No new imaging. ASSESSMENT AND PLAN: 1. 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 The patient was previously noncompliant with follow-up visits. Oncology team is planning chemotherapy on August 24. He is status post bone marrow biopsy on August 21, pending final results. I will continue him on allopurinol prophylactically for prevention of tumor lysis syndrome. 2. Autoimmune hemolytic anemia. Continue oral steroids. Follow up blood counts. 3. Anemia and thrombocytopenia, currently stable. We will transfuse him if he becomes symptomatic of low hemoglobin. Considering he is not tachycardic consistently, I will hold off on giving him transfusion at the moment. 4. Pontine cerebrovascular accident, likely chronic. Continue aspirin. Considering low cholesterol, he is not on any anticholesterol medication at the moment. 5. Alcohol abuse with mild delirium tremens. He was counseled about not using alcohol in the future. He understood it. Continue intravenous thiamine and oral Librium. DISPOSITION: I will discontinue Rutledge catheter, monitor patient in PVC and will consider transitioning him to routine medical floor in the next 24 hours. Plan of care discussed with him. His questions have been answered. cc: Silvestre London MD
[2019-08-24 06:34] LABS: BASO# 0.25 X1000 (0.0-0.2); BASO% 0.2 % (0.0-0.8); EOS# 0.01 X1000 (0.0-0.7); HEMATOCRIT 22.4 % (42.0-52.0); IMM GRAN# 0.19 X1000 (0.0-0.04); IMM GRAN% 0.2 % (0.0-0.5); LYMPH# 112.36 X1000 (1.2-3.4); MCH 32.3 PG (27-31); MCHC 26.8 g/dL (33-37); MCV 120.4 FL (81-99); MONO# 2.04 X1000 (0.11-0.59); MONO% 1.7 % (1.7-9.3); MPV 10.3 FL (7.4-10.4); NEUT# 6.02 X1000 (1.4-6.5); NEUT% 4.9 % (42.2-75.2); PLT 137 X1000 (130-400); RBC 1.86 XMIL (4.7-6.1)
[2019-08-24 07:08] LABS: AGAP 13; ALB/GLOB RATIO 1.9; ALBUMIN 3.4 g/dL (3.5-5.0); ALKALINE PHOSPHATASE 68 U/L (32-122); BUN 10 mg/dL (8-22); CHLORIDE 101 mmol/L (98-107); COSMO 272; CREATININE 0.6 mg/dL (0.7-1.2); ESTIMATED GFR > 60; GLUCOSE 124 mg/dL (70-104); GOT 36 U/L (10-34); GPT 23 U/L (10-44); POTASSIUM 4.4 mmol/L (3.5-5.1); SODIUM 136 mmol/L (136-145); TCO2 22 mmol/L (25-35); TOTAL BILIRUBIN 4.02 mg/dL (0.20-1.00); TOTAL PROTEIN 5.2 g/dL (6.3-8.3)
[2019-08-24] MEDS: PREDNISONE PO SCH ×2 (07:59→20:33)
[2019-08-24] MEDS: THERA M PLUS PO SCH (07:59)
[2019-08-24] MEDS: LIBRIUM PO SCH ×2 (07:59→20:33)
[2019-08-24] MEDS: ZYLOPRIM PO SCH (07:59)
[2019-08-24] MEDS: ASPIRIN PO SCH (07:59)
[2019-08-24 08:59] LABS: SEGS 10 % (42-75)
[2019-08-24 09:00] LABS: ANISOCYTOSIS 3+; HYPOCHROM 2+
[2019-08-24 09:01] LABS: LARGE PLATELETS 1+; LYMPHS 90 % (21-51)
[2019-08-24] MEDS ORDERED: PRILOSEC PO ONE (09:46)
--- NOTE | 2019-08-24 11:40 | Diag Imaging Result Doc PS360 ---
EXAM: CHEST-2 VIEWS - 08/24/2019 HISTORY: Rule out pneumonia TECHNIQUE: Chest two views COMPARISON: 08/19/2019 FINDINGS: Heart size appears the upper range of normal. There is some tortuosity of the thoracic aorta similar to prior. There is mild prominence of lower lung interstitial markings similar to prior. There is a tiny right pleural effusion. There is no dense consolidation or pneumothorax identified. IMPRESSION: Stable mild prominence of lower lung interstitial markings. Tiny right pleural effusion. No discrete pneumonia. Electronically signed by Giles Jamil 08/24/2019 11:38 AM
--- NOTE | 2019-08-24 11:45 | PROGRESS NOTE ---
DATE: 08/24/2019 INTERVAL HISTORY: No acute events overnight. SUBJECTIVE: Mr. Mesa denies new complaints. He denies chest pain, shortness of breath. He has been off oxygen. He denies any cough, nausea, vomiting, abdominal pain. His family is at bedside. VITALS: Temperature 98.3 degrees, pulse 84, respiratory rate 20, blood pressure 116/80, he is saturating 100% on 2 to 3 L nasal cannula. PHYSICAL EXAMINATION: Not in acute distress. Oral cavity is moist. Lungs: Air entry bilaterally equal. No wheeze, rhonchi, crackles. Cardiovascular: S1, S2 normal. No murmur, rub, or gallop. Abdomen: Soft, nontender. No lower extremity edema. He is alert and oriented x3. Input and output suggests there is no documented bowel movement, though patient states that he had a bowel movement yesterday. LABS: Suggestive of WBCs of 120,000, hemoglobin 6, platelets of 137,000. His BUN is 10, creatinine 0.6. MICROBIOLOGY: No new data. IMAGING: No new imaging. ASSESSMENT AND PLAN: 1. 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 Oncology team planning chemotherapy on August 24. Continue prophylactic allopurinol for tumor lysis syndrome. Pathology report from the bone marrow is pending. 2. Autoimmune hemolytic anemia, cold antibody positive. Continue oral steroids. 3. Anemia and thrombocytopenia. We will transfuse him as necessary. Considering he had volume overload after previous transfusion, I am holding the transfusion at the moment since he is more likely to have hemolysis and destruction of transfused RBC. 4. Pontine cerebrovascular accident, likely chronic. Continue aspirin. 5. Alcohol abuse with mild delirium tremens, now resolved. I will taper down chlordiazepoxide. Continue thiamine and Librium. 6. Others. Start patient on omeprazole for stress ulcer prophylaxis considering he has been on prednisone. Considering he has significant anemia, I am holding any anticoagulation for deep venous thrombosis prophylaxis. I advised him to go to the bathroom and walk at least 150 feet. He understands it. 7. Disposition. I will transfer patient to routine medical floor. Plan of care discussed with the patient and his questions have been answered. cc: Silvestre London MD
[2019-08-24 14:18] LABS: HEPATITIS PROFILE ACUTE SEE COMMENTS
[2019-08-25] MEDS: PRILOSEC PO SCH (06:04)
[2019-08-25] MEDS: THERA M PLUS PO SCH (08:26)
[2019-08-25] MEDS: ASPIRIN PO SCH (08:26)
[2019-08-25] MEDS: VITAMIN B-1 PO SCH (08:27)
[2019-08-25] MEDS: PREDNISONE PO SCH ×2 (08:27→23:22)
[2019-08-25] MEDS: ZYLOPRIM PO SCH (08:27)
[2019-08-25 08:53] LABS: BASO# 0.22 X1000 (0.0-0.2); BASO% 0.2 % (0.0-0.8); EOS# 0.06 X1000 (0.0-0.7); HEMATOCRIT 21.9 % (42.0-52.0); HEMOGLOBIN 5.9 g/dL (14.0-18.0); IMM GRAN# 0.22 X1000 (0.0-0.04); IMM GRAN% 0.2 % (0.0-0.5); LYMPH# 118.43 X1000 (1.2-3.4); MCHC 26.9 g/dL (33-37); MCV 122.3 FL (81-99); MONO# 2.48 X1000 (0.11-0.59); MONO% 1.9 % (1.7-9.3); NEUT# 5.88 X1000 (1.4-6.5); NEUT% 4.7 % (42.2-75.2); PLT 167 X1000 (130-400); RBC 1.79 XMIL (4.7-6.1); WBC 127.29 X1000 (4.8-10.8)
[2019-08-25 09:20] LABS: ANISOCYTOSIS 2+; HYPOCHROM 1+; LYMPHS 84 % (21-51); SEGS 16 % (42-75)
--- NOTE | 2019-08-25 11:59 | NEUROLOGY PROGRESS NOTE ---
DATE: 08/25/2019 Mr. Mesa reports he is feeling well, is feeling stronger. He did not have any specific complaints. He has not had dizziness to the extent that he had prior to admission. I do not have any new suggestion. I do not think the recent dizziness was due to new [employer] event. I encouraged him to consider ethanol abstinence, to take his medicines as directed, and to keep his followup with his other doctors. Thanks for asking Neurology to see Mr. Mesa. cc: MD MONO Cali III
--- NOTE | 2019-08-25 12:02 | Carotid Study ---
DATE: 08/21/2019 REFERRING PHYSICIAN: Silvestre London MD READING PHYSICIAN: Enoch Wade MD [employer]ACHINE OPERATOR: [place]. INDICATION: Stroke. FINDINGS: The common internal and external carotid arteries appear to be free of any plaque disease. There is some mild elevation of velocity in the distal right internal carotid artery, which is not hemodynamically significant. There is antegrade vertebral flow bilaterally. The percent stenosis is 0 to 39% on the right. This may be closer to 39% given the mild elevation of velocity in the distal internal carotid artery, and 0 to 39% on the left. Of note, there are several cystic and solid appearing masses in both necks. It is unclear if these represent solid masses or lymph nodes, and these should be handled clinically. Consider CT scan of the neck. cc: MD Silvestre Aiken MD
[2019-08-25] MEDS ORDERED: TYLENOL PO ONE (13:00)
[2019-08-25] MEDS ORDERED: BENADRYL PO ONE (13:00)
[2019-08-25] MEDS ORDERED: EMEND 150 MG in NS 145 ML IV ONE (13:30)
[2019-08-25] MEDS ORDERED: DECADRON IV ONE (14:00)
[2019-08-25] MEDS ORDERED: NS IV ONE ×2 (14:00→14:30)
[2019-08-25] MEDS ORDERED: ZOFRAN IV ONE (14:00)
--- NOTE | 2019-08-25 14:16 | PROGRESS NOTE ---
DATE: 08/25/2019 INTERVAL HISTORY: No acute events overnight. His vitals were unremarkable. He continues to have leukocytosis and anemia. He is about to receive chemotherapy for his leukemia. He denies any chest pain, shortness of breath. He has been going to the bathroom to take a shower. I cautioned him that he should watch out for symptoms of dizziness because of severe anemia. VITALS: Temperature 98.1 degrees, pulse 97, respiratory rate 20, blood pressure 129/56, he is saturating 100% on 2 L nasal cannula. PHYSICAL EXAMINATION: Not in acute distress. He has scleral icterus. Oral cavity is moist. Lungs: Air entry bilaterally equal. No wheeze, rhonchi, or crackles. Cardiovascular: S1, S2 normal. No murmur, rub, or gallop. On my previous examination, he had right cervical and supraclavicular lymphadenopathy. Abdomen: Soft, nontender. Active bowel sounds. No lower extremity edema. He is alert and oriented x3. LABS: Suggestive of WBC of 127, hemoglobin of 5.9, platelets of 167,000. He does not have any BMP or liver function tests. No new imaging or microbiological data. ASSESSMENT AND PLAN: 1. 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 Oncology team planning chemotherapy on August 24. Continue prophylactic allopurinol for tumor lysis syndrome and follow up with CBC and electrolyte panel tomorrow to watch out for tumor lysis syndrome. Also continue chemotherapy as per oncology team's recommendation. 2. Autoimmune hemolytic anemia, cold antibody positive. Continue oral steroids. Appreciate oncology team's recommendation regarding need for transfusion, though he is not symptomatic at the moment. 3. Anemia and thrombocytopenia. We will transfuse as necessary as per oncology team's recommendation. 4. Pontine cerebrovascular accident, investigated based on neurological examination, likely chronic. Continue aspirin. He did have extremely low cholesterol on repeat panel, though I am not sure if hyperviscosity because of leukocytosis was interfering with analysis. In any case, I am holding on any antilipid medication. He may need a lipid panel in the future. 5. Alcohol abuse with mild delirium tremens, now resolved. I will taper of his Librium in the next 24 hours. Continue thiamine and multivitamin. 6. Others. Continue omeprazole for stress ulcer prophylaxis. I am holding chemical anticoagulation for the fact that he has extremely low hemoglobin and also intermittent thrombocytopenia. He is fairly ambulatory. I will keep him on sequential compression devices. 7. Disposition. Monitor patient inside the hospital for tumor lysis syndrome. After today's chemotherapy, if no further chemotherapy sessions are planned, the patient could be discharged in the next 24 to 48 hours pending Oncology team's plans. cc: Silvestre London MD MTDD
[2019-08-25] MEDS ORDERED: RITUXAN IV ONE (14:30)
[2019-08-25] MEDS ORDERED: SODIUM CHLORIDE IV ONE (18:00)
[2019-08-25] MEDS ORDERED: BENDAMUSTINE IV ONE (18:00)
[2019-08-25] MEDS ORDERED: IN NS IV ONE (18:00)
[2019-08-25 21:41] LABS: WBC 120.87 X1000 (4.8-10.8)
[2019-08-25] MEDS: LIBRIUM PO SCH (23:22)
[2019-08-26] MEDS: PRILOSEC PO SCH (06:37)
[2019-08-26] MEDS: PREDNISONE PO SCH ×2 (08:12→23:01)
[2019-08-26] MEDS: ZYLOPRIM PO SCH (08:12)
[2019-08-26] MEDS: ASPIRIN PO SCH (08:12)
[2019-08-26] MEDS: THERA M PLUS PO SCH (08:12)
[2019-08-26] MEDS: VITAMIN B-1 PO SCH (08:12)
[2019-08-26 08:14] LABS: BASO# 0.04 X1000 (0.0-0.2); BASO% 0.1 % (0.0-0.8); EOS# 0.01 X1000 (0.0-0.7); HEMATOCRIT 19.8 % (42.0-52.0); HEMOGLOBIN 5.5 g/dL (14.0-18.0); IMM GRAN# 0.17 X1000 (0.0-0.04); IMM GRAN% 0.4 % (0.0-0.5); LYMPH% 81.7 % (20.5-51.1); MCH 34.2 PG (27-31); MCHC 27.8 g/dL (33-37); MONO# 0.41 X1000 (0.11-0.59); MONO% 0.9 % (1.7-9.3); MPV 10.1 FL (7.4-10.4); NEUT# 7.85 X1000 (1.4-6.5); NEUT% 16.9 % (42.2-75.2); PLT 185 X1000 (130-400); RBC 1.61 XMIL (4.7-6.1); WBC 46.28 X1000 (4.8-10.8)
[2019-08-26 08:28] LABS: AGAP 10; ALB/GLOB RATIO 1.6; ALBUMIN 3.3 g/dL (3.5-5.0); ALKALINE PHOSPHATASE 70 U/L (32-122); BUN 9 mg/dL (8-22); CALCIUM 8.3 mg/dL (8.8-10.2); CHLORIDE 100 mmol/L (98-107); COSMO 269; CREATININE 0.6 mg/dL (0.7-1.2); ESTIMATED GFR > 60; GLUCOSE 132 mg/dL (70-104); GOT 34 U/L (10-34); GPT 25 U/L (10-44); PHOSPHORUS 3.2 mg/dL (2.7-4.5); POTASSIUM 3.7 mmol/L (3.5-5.1); SODIUM 134 mmol/L (136-145); TCO2 24 mmol/L (25-35); TOTAL BILIRUBIN 3.34 mg/dL (0.20-1.00); TOTAL PROTEIN 5.3 g/dL (6.3-8.3)
[2019-08-26 08:45] LABS: ANISOCYTOSIS 2+; BANDS 2 % (0-1); HYPOCHROM 1+; POIKILOCYTOSIS 1+; POLYCHROM 1+; SEGS 16 % (42-75)
[2019-08-26 08:46] LABS: LYMPHS 82 % (21-51)
[2019-08-26] MEDS ORDERED: NS 500 ML ONE (17:37)
--- NOTE | 2019-08-26 17:59 | PROGRESS NOTE ---
DATE: 08/26/2019 SUBJECTIVE: The patient is resting comfortably in bed. He has no complaints at this time. No acute events noted overnight. The patient received chemotherapy yesterday. OBJECTIVE: Vital Signs: Temperature 98.3, blood pressure 134/60, heart rate 91, respirations 20, O2 saturation 99% on 3 L nasal cannula. Intake 2.5 L, output 1.2 L. General: This is a [id number] male lying in bed in no acute distress. Heart: S1, S2 normal. Regular rate and rhythm. Lungs: Clear to auscultation bilaterally. No wheezing. No rales. No rhonchi. Abdomen: Positive bowel sounds. Soft, nontender, nondistended. Extremities: No edema, no cyanosis, no calf tenderness. Neurologic: The patient is alert and oriented x3. LABS: White blood cell count 46, hemoglobin 5.5, hematocrit 19, platelets 185. Sodium 134, potassium 3.4, chloride 100. CO2 is 24, BUN 9, creatinine 0.6, glucose 132, phosphorus 3.2, total bilirubin 3.3. ASSESSMENT AND PLAN: 1. Autoimmune hemolytic anemia with cold antibody. The patient received rituximab and fosaprepitant yesterday. The hemoglobin and hematocrit are lower today. Management as per the oncologist. Also, the bone marrow biopsy results are pending. 2. Chronic lymphocytic leukemia. Aware. The bone marrow biopsy pathology is currently pending. 3. Chronic alcohol abuse. Aware. 4. Tobacco dependence. The patient has been counseled about smoking cessation. cc: Leia Escobar MD [facility]
[2019-08-26] MEDS: LIBRIUM PO SCH (23:01)
[2019-08-27] MEDS: PRILOSEC PO SCH (06:20)
[2019-08-27 08:52] LABS: BASO# 0.07 X1000 (0.0-0.2); BASO% 0.2 % (0.0-0.8); EOS# 0.01 X1000 (0.0-0.7); HEMATOCRIT 24.3 % (42.0-52.0); HEMOGLOBIN 7.1 g/dL (14.0-18.0); IMM GRAN# 0.22 X1000 (0.0-0.04); IMM GRAN% 0.5 % (0.0-0.5); LYMPH# 32.87 X1000 (1.2-3.4); LYMPH% 81.3 % (20.5-51.1); MCH 34.6 PG (27-31); MCHC 29.2 g/dL (33-37); MCV 118.5 FL (81-99); MONO# 0.51 X1000 (0.11-0.59); MONO% 1.3 % (1.7-9.3); MPV 10.2 FL (7.4-10.4); NEUT# 6.76 X1000 (1.4-6.5); NEUT% 16.7 % (42.2-75.2); PLT 207 X1000 (130-400); RBC 2.05 XMIL (4.7-6.1); WBC 40.44 X1000 (4.8-10.8)
[2019-08-27] MEDS: ZYLOPRIM PO SCH (08:58)
[2019-08-27] MEDS: PREDNISONE PO SCH ×2 (08:58→21:46)
[2019-08-27] MEDS: ASPIRIN PO SCH (08:58)
[2019-08-27] MEDS: VITAMIN B-1 PO SCH (08:58)
[2019-08-27] MEDS: THERA M PLUS PO SCH (08:58)
[2019-08-27 09:10] LABS: AGAP 11; ALBUMIN 3.4 g/dL (3.5-5.0); BUN 10 mg/dL (8-22); CALCIUM 8.4 mg/dL (8.8-10.2); CHLORIDE 103 mmol/L (98-107); COSMO 277; CREATININE 0.6 mg/dL (0.7-1.2); ESTIMATED GFR > 60; GLUCOSE 103 mg/dL (70-104); PHOSPHORUS 3.9 mg/dL (2.7-4.5); SODIUM 139 mmol/L (136-145); TCO2 25 mmol/L (25-35)
[2019-08-27 11:12] LABS: EOS 2 % (1-10); NRBC 2 % (0-0); SEGS 24 % (42-75)
[2019-08-27 11:13] LABS: ANISOCYTOSIS 2+; HYPOCHROM 1+; POIKILOCYTOSIS 1+
[2019-08-27 11:14] LABS: LARGE PLATELETS 1+; LYMPHS 72 % (21-51); SPHEROCYTES 1+
--- NOTE | 2019-08-27 17:40 | PROGRESS NOTE ---
DATE: 08/27/2019 SUBJECTIVE: The patient is resting comfortably in bed. He has no complaints. OBJECTIVE: Vital Signs: Temperature 98.2 degrees, blood pressure 147/70, heart rate 83, respirations 20, O2 saturation is 100% on 3 L nasal cannula. General: This is a chronically ill- appearing elderly male, lying in bed in no acute distress. Heart: S1, S2 normal. Regular rate and rhythm. Lungs: Clear to auscultation bilaterally. No wheezing. No rales. No rhonchi. Abdomen: Positive bowel sounds. Soft, nontender, nondistended. Extremities: No edema, no cyanosis. No calf tenderness. Neurologic: The patient is alert and oriented x3. LABORATORY DATA: White blood cell count 40, hemoglobin 7.1, hematocrit 24, platelets 207,000. Sodium 139, potassium 4, BUN 10, creatinine 0.6, glucose 103, albumin 3.4. ASSESSMENT AND PLAN: 1. Autoimmune hemolytic anemia. Improved. The patient is status post chemotherapy. Further management as per Hematology/oncology. 2. Chronic lymphocytic leukemia. The bone marrow biopsy confirms that the patient has chronic lymphocytic leukemia. Further management as per the oncologist. 3. Acute hypoxemic respiratory failure. We will try and wean the patient off of supplemental oxygen. 4. Chronic alcoholism. Aware. 5. Tobacco dependence. The patient has been counseled about smoking cessation. 6. Disposition. We will plan to discharge the patient home once cleared by the oncologist. cc: Leia Escobar MD MTDD
[2019-08-28] MEDS: PRILOSEC PO SCH (06:12)
[2019-08-28 08:59] LABS: BASO# 0.06 X1000 (0.0-0.2); BASO% 0.2 % (0.0-0.8); EOS# 0.02 X1000 (0.0-0.7); EOS% 0.1 % (0.0-10.0); HEMOGLOBIN 6.7 g/dL (14.0-18.0); IMM GRAN# 0.27 X1000 (0.0-0.04); LYMPH# 21.93 X1000 (1.2-3.4); LYMPH% 78.8 % (20.5-51.1); MCH 34.4 PG (27-31); MCHC 29.1 g/dL (33-37); MCV 117.9 FL (81-99); MONO# 0.38 X1000 (0.11-0.59); MONO% 1.4 % (1.7-9.3); MPV 9.7 FL (7.4-10.4); NEUT# 5.16 X1000 (1.4-6.5); NEUT% 18.5 % (42.2-75.2); PLT 208 X1000 (130-400); RBC 1.95 XMIL (4.7-6.1); RDW 29.5 % (11.5-14.5); WBC 27.82 X1000 (4.8-10.8)
[2019-08-28 09:00] LABS: AGAP 10; ALBUMIN 3.3 g/dL (3.5-5.0); BUN 9 mg/dL (8-22); CALCIUM 8.4 mg/dL (8.8-10.2); CHLORIDE 100 mmol/L (98-107); COSMO 271; CREATININE 0.6 mg/dL (0.7-1.2); ESTIMATED GFR > 60; GLUCOSE 110 mg/dL (70-104); PHOSPHORUS 4.2 mg/dL (2.7-4.5); POTASSIUM 3.7 mmol/L (3.5-5.1); SODIUM 136 mmol/L (136-145); TCO2 26 mmol/L (25-35)
[2019-08-28] MEDS: ASPIRIN PO SCH (10:06)
[2019-08-28] MEDS: PREDNISONE PO SCH ×2 (10:06→22:06)
[2019-08-28] MEDS: THERA M PLUS PO SCH (10:07)
[2019-08-28] MEDS: VITAMIN B-1 PO SCH (10:07)
[2019-08-28] MEDS: ZYLOPRIM PO SCH (10:08)
[2019-08-28 10:51] LABS: ANISOCYTOSIS 3+; LYMPHS 76 % (21-51); MONO 2 % (1-9); NRBC 5 % (0-0); SEGS 22 % (42-75)
[2019-08-28 10:52] LABS: LARGE PLATELETS 1+
--- NOTE | 2019-08-28 11:59 | Diag Imaging Result Doc PS360 ---
EXAM: CHEST-1 VIEW 08/28/2019 HISTORY: dyspnea TECHNIQUE: AP portable at 1141 COMMENT: There are platelike opacities in both lung bases. Compared to 08/24/2019 there has been no significant change otherwise. IMPRESSION: Subsegmental atelectasis. Electronically signed by Tk Gold 08/28/2019 11:57 AM
[2019-08-28] MEDS: NS 250 ML IV SCH (15:26)
--- NOTE | 2019-08-28 20:09 | PROGRESS NOTE ---
DATE: 08/28/2019 SUBJECTIVE: The patient is resting comfortably in bed. He has been weaned off of the supplemental oxygen. OBJECTIVE: Vital Signs: Temperature 98.2, blood pressure 139/69, heart rate 99, respirations 16, O2 saturation 100% on room air. General: This is a ahwegddxzvf-lhp-dfyodnemm elderly male lying in bed in no acute distress. Heart: S1, S2 normal. Regular rate and rhythm. Lungs: Clear to auscultation bilaterally. Abdomen: Positive bowel sounds. Soft, nontender, nondistended. Extremities: No edema, no cyanosis. Neurologic: The patient is alert and oriented x3. LABS: White blood cell count 27, hemoglobin 6.7, hematocrit 23, platelets 208. Sodium 136, potassium 3.7, BUN 9, creatinine 0.6, glucose 110. Chest x-ray shows atelectasis. ASSESSMENT AND PLAN: 1. Autoimmune hemolytic anemia. The patient's hemoglobin and hematocrit are low. The patient is scheduled to receive a blood transfusion today. Management as per the oncologist. 2. Chronic lymphocytic leukemia. Aware. Management as per the oncologist. 3. Chronic alcoholism. Aware. 4. Tobacco dependence. The patient has been counseled about smoking cessation. 5. Disposition. The patient will be discharged once cleared by the oncologist. 6. Continue with physical therapy. cc: Leia Escobar MD
[2019-08-29] MEDS: NS 250 ML IV SCH ×2 (03:47→13:56)
[2019-08-29] MEDS: PRILOSEC PO SCH (06:35)
[2019-08-29 08:11] LABS: AGAP 12; ALBUMIN 3.2 g/dL (3.5-5.0); BUN 8 mg/dL (8-22); CALCIUM 8.5 mg/dL (8.8-10.2); CHLORIDE 102 mmol/L (98-107); COSMO 275; CREATININE 0.6 mg/dL (0.7-1.2); ESTIMATED GFR > 60; GLUCOSE 111 mg/dL (70-104); PHOSPHORUS 4.6 mg/dL (2.7-4.5); POTASSIUM 3.9 mmol/L (3.5-5.1); SODIUM 138 mmol/L (136-145); TCO2 24 mmol/L (25-35)
[2019-08-29 08:48] LABS: BASO# 0.06 X1000 (0.0-0.2); BASO% 0.2 % (0.0-0.8); MCH 36.9 PG (27-31); MCV 115.2 FL (81-99); PLT 204 X1000 (130-400); RBC 2.17 XMIL (4.7-6.1); RDW 29.2 % (11.5-14.5)
[2019-08-29] MEDS: ASPIRIN PO SCH (08:58)
[2019-08-29] MEDS: VITAMIN B-1 PO SCH (08:58)
[2019-08-29] MEDS: PREDNISONE PO SCH (08:59)
[2019-08-29] MEDS: ZYLOPRIM PO SCH (08:59)
[2019-08-29] MEDS: THERA M PLUS PO SCH (08:59)
[2019-08-29 09:40] LABS: ANISOCYTOSIS 3+; NRBC 2 % (0-0); SEGS 30 % (42-75)
[2019-08-29 09:41] LABS: HYPOCHROM 1+; LARGE PLATELETS 1+
[2019-08-29 09:42] LABS: LYMPHS 68 % (21-51)
[2019-08-29 10:32] LABS: TEST NAME CHROM ANALY BON
[2019-08-29 11:44] VITALS: BP 121/62
--- NOTE | 2019-09-07 17:43 | DISCHARGE SUMMARY ---
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 2. Chronic lymphocytic leukemia. 3. Chronic alcoholism. 4. Tobacco dependence. CONSULTATIONS: Oncology consultation with Dr. Solis. HOSPITAL COURSE: Mr. Mesa is a 53-year-old male with a history of chronic alcoholism and CLL who was admitted due to severe anemia. Oncology was consulted and there was concern about likely progression of the patient's CLL to acute leukemia. The patient was scheduled for a bone marrow biopsy and a CT of the chest, abdomen, and pelvis was performed. The CT revealed worsened adenopathy and splenomegaly. The patient then underwent a bone marrow biopsy on 08/21/2019. The patient underwent an MRI of the brain without contrast which revealed a chronic lacunar infarct involving the juan as well as soft tissue lymphadenopathy in the neck. The patient was noted to have developed autoimmune hemolytic anemia and was treated with chemotherapy. This resulted in some improvement and the patient did receive a blood transfusion as well during the hospitalization. Ultimately, the pathology from the bone marrow biopsy revealed CLL. The patient continued to improve clinically and was ultimately cleared for discharge home on August 29, 2019. DISCHARGE MEDICATIONS: 1. Aspirin 81 mg oral daily. 2. Multivitamin 1 tab oral daily. 3. Lisinopril 10 mg oral daily. 4. Allopurinol 300 mg oral daily. 5. Vitamin D3 at 10,000 units oral every 7 days. DISCHARGE DIET: Low-sodium diet. ACTIVITY: As tolerated. FOLLOW-UP INSTRUCTIONS: The patient will need to follow up with Dr. Solis as scheduled by his clinic. cc: Leia Escobar MD
== END 2019-08-29 16:01 | disposition home or self-care (01) | DRG 809 ==
LOC: 3N 17:55 → ED 17:55 → SUATTDRO 08-20 00:39 → OBSVTOIN 08-20 00:39 → 2N 08-21 19:02 → 3N 08-24 12:41
PROVIDERS: ATTEND Internal Medicine

== ENCOUNTER 2019-09-05 10:59 | Observation (INO) ==
[2019-09-05 13:30] LABS: BASO# 0.03 X1000 (0.0-0.2); BASO% 0.7 % (0.0-0.8); EOS# 0.04 X1000 (0.0-0.7); EOS% 0.9 % (0.0-10.0); HEMATOCRIT 19.9 % (42.0-52.0); HEMOGLOBIN 6.1 g/dL (14.0-18.0); IMM GRAN# 0.08 X1000 (0.0-0.04); IMM GRAN% 1.8 % (0.0-0.5); LYMPH# 1.49 X1000 (1.2-3.4); LYMPH% 33.3 % (20.5-51.1); MCH 35.5 PG (27-31); MCHC 30.7 g/dL (33-37); MCV 115.7 FL (81-99); MONO# 0.23 X1000 (0.11-0.59); MONO% 5.1 % (1.7-9.3); MPV 8.8 FL (7.4-10.4); NEUT% 58.2 % (42.2-75.2); PLT 329 X1000 (130-400); RBC 1.72 XMIL (4.7-6.1); WBC 4.47 X1000 (4.8-10.8)
[2019-09-05 13:34] LABS: AGAP 9; ALB/GLOB RATIO 1.8; ALBUMIN 3.8 g/dL (3.5-5.0); ALKALINE PHOSPHATASE 72 U/L (32-122); BUN 4 mg/dL (8-22); CALCIUM 8.7 mg/dL (8.8-10.2); CHLORIDE 105 mmol/L (98-107); COSMO 268; CREATININE 0.5 mg/dL (0.7-1.2); ESTIMATED GFR > 60; GLUCOSE 91 mg/dL (70-104); GOT 27 U/L (10-34); GPT 12 U/L (10-44); POTASSIUM 4.2 mmol/L (3.5-5.1); SODIUM 136 mmol/L (136-145); TCO2 22 mmol/L (25-35); TOTAL PROTEIN 5.9 g/dL (6.3-8.3)
[2019-09-05] MEDS ORDERED: NS 500 ML IV ONE (14:01)
--- NOTE | 2019-09-05 15:33 | PROVIDER DOCUMENTATION ---
This chart was entered by Holly Begum Scribe, acting as scribe for Yeny Soto MD. HPI-General Adult - General Chief Complaint: Abnormal Lab[s] Stated Complaint: HEMOGOLBIN LEVEL LOW Time Seen by Provider: 09/05/19 12:15 Source: patient, family Allergies/Adverse Reactions: Patient Allergies Allergy/AdvReac Type Severity Reaction Status Date / Time No Known Allergies Allergy Verified 09/05/19 12:54 Home Medications: Home Medication List Medication Instructions Recorded Confirmed Last Taken Type Allopurinol [Zyloprim] 300 mg PO DAILY #30 tab 08/29/19 09/05/19 09/05/19 Rx Aspirin 81 mg PO DAILY #30 chewtab 08/29/19 09/05/19 09/05/19 Rx Cholecalciferol (Vit D3) [Vitamin 10,000 unit PO Q7D #30 cap 08/29/19 09/05/19 09/05/19 Rx D] Lisinopril [Zestril] 10 mg PO DAILY #30 tab 08/29/19 09/05/19 09/05/19 Rx Multivit,Fe,Ca,FA & Min [Thera M 1 ea PO DAILY #30 tab 08/29/19 09/05/19 09/05/19 Rx Plus] - History of Present Illness -Gen Adult Nature of Presenting Problems: 53 yobm presents to the ed with c/o low hemoglobin. pt is a curent cancer pt and is currently on chemo. pt sts he feels good and has no sx. pt has of anemia and sts he has not seen in bleeding in stool Location of Pain/Injury: reports: none Pain Radiation: reports: no radiation Quality of Pain: reports: none Severity: reports: mild Onset/Duration: reports: unsure Timing: reports: still present Context/Activities at Onset: reports: light activity Modifying Factors: improves with: nothing Associated Symptoms: reports: denies symptoms Similar Symptoms Previously?: Yes (hx of anemia) Recently seen or treated by another doctor?: Yes (oncology) Review of Systems - Adult - REVIEW OF SYSTEMS - ADULT Constitutional: denies: chills, fever Eyes: reports: no symptoms reported Ears, Nose, Mouth & Throat: reports: no symptoms reported Cardiovascular: denies: chest pain, palpitations Respiratory: denies: cough, wheezing Gastrointestinal: denies: abdominal pain, diarrhea, nausea, vomiting Genitourinary: reports: no symptoms reported Musculoskeletal: denies: back pain, neck pain Integumentary: reports: no symptoms reported Neurological: reports: no symptoms reported Psychiatric: reports: no symptoms reported Endocrine: reports: no symptoms reported Hematologic/Lymphatic: reports: see HPI, low blood count Allergic/Immunologic: reports: no symptoms reported All Other Systems: Reviewed and Negative Past History - Adult - PAST MEDICAL HISTORY-ADULT Review of Records: reports: Old Records Reviewed, Nursing Assessment Review, Medications Reviewed, Social history reviewed & non-contributory. Major Childhood Illnesses: reports: denies history Cardiovascular: reports: HTN Respiratory: reports: denies history Gastrointestinal: reports: denies history Genitourinary: reports: denies history Musculoskeletal: reports: denies history Neurological: reports: denies history Psychiatric: reports: denies history Endocrine/Immune: reports: anemia, immunosuppression, Leukemia Other Conditions: reports: denies history - PRIOR SURGERIES/PROCEDURES Surgical/Procedure History: reports: reviewed, not pertinent - IMMUNIZATION STATUS Childhood Immunizations: See Nurse Assessment Flu Vaccine: See Nurse Assessment - FAMILY HISTORY Family History: reviewed, not pertinent - SOCIAL HISTORY Smoking: quit greater than 1 year Substance Use: none presently/history of abuse (etoh) Living Situation: family Physical Exam-General - PHYSICAL EXAM-ADULT Initial Vital Signs Reviewed: Yes - CONSTITUTIONAL General Appearance: appears well, alert, no apparent distress - EYES Eyes: PERRL/EOMI, pink conjunctivae - HEAD, EARS, NOSE, MOUTH & THROAT HENMT: moist mucous membranes - NECK Neck: non-tender, full range of motion, supple, normal inspection - RESPIRATORY Respiratory: chest non-tender, lungs clear, normal breath sounds - CARDIOVASCULAR Cardiovascular: normal peripheral pulses, tachycardia (114) - CHEST (BREASTS) Chest/Breast: deferred - GASTROINTESTINAL (ABDOMEN) Abdominal Exam: normal bowel sounds, non tender, soft - GENITOURINARY Male Genitalia: deferred Rectal Exam: deferred Hemoccult Exam: deferred - LYMPHATIC Lymphatic: no adenopathy - MUSCULOSKELETAL Back Exam: no CVA tenderness, no vertebral tenderness Extremity: normal range of motion, non-tender, normal gait, normal inspection, no pedal edema, no calf tenderness, normal capillary refill, pelvis stable - SKIN Integumentary: normal color, normal turgor, warm/dry - NEUROLOGIC Neurologic: grossly normal - PSYCHIATRIC Psych/Mental Status: normal mood/affect, normal thought content, normal thought process, oriented x 3 Progress - PLAN OF CARE/RESULTS Progress/Plan/Lab Results: Vital Signs - 8 hr 09/05/19 11:04 Temperature 97.7 F Pulse Rate 114 H Respiratory Rate 16 Blood Pressure 133/67 O2 Sat by Pulse Oximetry 100 Orders Category Date Time Status NEWS Score 2-4:Order NEWS Lactate Series NOW Care 09/05/19 11:07 Active CBC WITH ELECTRONIC DIFF [HEME] Stat Lab 09/05/19 13:06 Ordered COMPREHENSIVE METABOLIC PANEL [CHEM] Stat Lab 09/05/19 13:06 Ordered LACTATE, PLASMA [CHEM] Lab 09/05/19 13:06 Ordered LACTATE, PLASMA [CHEM] Lab 09/05/19 14:15 Uncollected LACTATE, PLASMA [CHEM] Lab 09/05/19 17:15 Uncollected TYPE & SCREEN [BBK] Stat Lab 09/05/19 13:06 Ordered Generalized Adult Illness >60 Stat Oth 09/05/19 11:08 Ordered Result Diagrams: 09/05/19 13:04 09/05/19 13:04 - REASSESSMENT Reassessment #1 Time Reassessed: 14:02 Status: unchanged Reassessment Comment: dr soto at bedside - CONSULTS/PCP/HOSPITALIST Notification #1 *Consult/PCP/Hospitalist*: dr elizabeth hospitalist Time Discussed: 14:11 Consult Disposition: Will see in ED, Admit Departure - Departure Date of Disposition Decision: 09/05/19 Time of Disposition Decision: 14:11 DIAGNOSIS: Anemia Qualifiers: Anemia type: other cause Other causes of anemia: other cause, not classified Qualified Code(s): D64.89 - Other specified anemias Disposition: ADMITTED INPATIENT 09 Certified Medical Emergency: Emergent Condition: Stable - Critical Care Note This patient required my direct & personal management of CC.: No Attestation - Physician/ DIAM Attestation Patient care was provided by Advanced Practice Provider:: No The physician spent face to face time with patient:: Yes Advanced Practice Provider documentation review:: Supervising physician onsite and consulted in the evaluation and care of this patient. The physician did have a face to face encounter with the patient. This chart was documented by the indicated scribe, (Holly Begum Scribe) and accurately reflects the services I performed and decisions made by me, Yeny Soto MD, as attested by the provider's signature.
[2019-09-05] MEDS ORDERED: TYLENOL PO PRN (15:37)
[2019-09-05] MEDS ORDERED: ZOFRAN IV PRN (15:37)
--- NOTE | 2019-09-05 16:58 | HISTORY AND PHYSICAL ---
PRIMARY CARE PHYSICIAN: Dr. Low Joshi ONCOLOGIST: Dr. Andrey Solis CHIEF COMPLAINT: Abnormal hemoglobin and hematocrit on labs. HISTORY OF PRESENTING ILLNESS: This is a 53-year-old male who presents to [facility] after he had some labs drawn by his primary care physician's office. Those labs are supposed to be faxed, according to the daughter to Dr. Solis for an outpatient infusion for blood transfusion but he was sent to the emergency room for admission. Apparently, his workup showed an hemoglobin and hematocrit of 6.1 and 19.9. The patient denies any shortness of breath, fatigue. Denies any black tarry stools and is currently has leukemia and is on chemotherapy. He was in the hospital and discharged last Sunday with anemia also, so he will be admitted for further evaluation and treatment. PAST MEDICAL HISTORY: Leukemia, hypertension, chronic alcoholism. PAST SURGICAL HISTORY: None. FAMILY HISTORY: Reviewed and noncontributory. SOCIAL HISTORY: Currently lives with family, is a 20 pack per year smoker. Drinks beer daily and denies any illicit drug use. ALLERGIES: He has no known drug allergies. HOME MEDICATIONS: Takes Zyloprim 300 mg p.o. daily, aspirin 81 mg p.o. daily will be held. Vitamin D 37757 units p.o. q. 7 days will be held. Zestril 10 mg p.o. daily and multivitamin p.o. daily. LABORATORY DATA: Showed a white blood cell count of 4.47, hemoglobin of 6.1, hematocrit 19.9, platelets 329,000. Sodium 136, potassium 4.2, chloride 105, CO2 22, BUN of 4, creatinine 0.5, glucose 91, total bilirubin of 3.60. Plasma lactate of 1. REVIEW OF SYSTEMS: He denied any fever, chills, blurred vision, dizziness, chest pain, coughing, shortness of breath. Denied any abdominal pain, constipation, diarrhea, burning or hurting with urination. PHYSICAL EXAMINATION: VITAL SIGNS: On arrival, he had a temperature of 97.7 degrees, pulse 114, respirations 16, blood pressure 133/67 saturating 100% on room air. GENERAL: This is a 53-year-old male who is lying in the bed and answers questions appropriately. HEENT: Normocephalic, atraumatic. Normal ENT inspection. EYES: Pupils are equal, round, reactive to light and accommodation. Extraocular movements are intact. He has icteric sclerae. NECK: Normal inspection. Normal range of motion. LUNGS: Clear to auscultation bilaterally with equal lung expansion and chest wall movement. HEART: Regular rate and rhythm. No murmurs, rubs, or gallops. ABDOMEN: Soft, nontender, nondistended. Bowel sounds are present x4 quadrants. MUSCULOSKELETAL: He had 5/5 strength x4 extremities. NEUROLOGICAL: The cranial nerves 2-12 appear grossly intact. ASSESSMENT: 1. Anemia secondary to chemotherapy. 2. Leukemia. 3. Hypertension. 4. Tobacco abuse. 5. Chronic alcoholism. PLAN: He will be admitted to the medical unit placed on telemetry. We will transfuse 2 units of packed red blood cells. We will consult his oncologist. Place on normal saline at 30 mL an hour. Continue home medications as previously identified. SCDs for DVT prophylaxis. Healthy heart diet and recheck a CBC and BMP in the a.m. Further orders after seen by attending. Dictated by ANTON Osorio for Brian Hyde MD cc: ANTON Osorio MD
[2019-09-06 08:16] LABS: AGAP 12; BASO# 0.03 X1000 (0.0-0.2); BASO% 0.7 % (0.0-0.8); BUN 5 mg/dL (8-22); CALCIUM 8.5 mg/dL (8.8-10.2); CHLORIDE 107 mmol/L (98-107); COSMO 277; CREATININE 0.6 mg/dL (0.7-1.2); EOS# 0.05 X1000 (0.0-0.7); EOS% 1.1 % (0.0-10.0); ESTIMATED GFR > 60; GLUCOSE 100 mg/dL (70-104); HEMATOCRIT 24.4 % (42.0-52.0); HEMOGLOBIN 7.7 g/dL (14.0-18.0); IMM GRAN# 0.07 X1000 (0.0-0.04); IMM GRAN% 1.6 % (0.0-0.5); LYMPH# 1.57 X1000 (1.2-3.4); LYMPH% 36.1 % (20.5-51.1); MCH 33.8 PG (27-31); MCHC 31.6 g/dL (33-37); MONO# 0.19 X1000 (0.11-0.59); MONO% 4.4 % (1.7-9.3); MPV 8.6 FL (7.4-10.4); NEUT# 2.44 X1000 (1.4-6.5); NEUT% 56.1 % (42.2-75.2); PLT 276 X1000 (130-400); POTASSIUM 3.7 mmol/L (3.5-5.1); RBC 2.28 XMIL (4.7-6.1); RDW 26.7 % (11.5-14.5); SODIUM 140 mmol/L (136-145); TCO2 21 mmol/L (25-35); WBC 4.35 X1000 (4.8-10.8)
[2019-09-06] MEDS ORDERED: ZYLOPRIM PO SCH (09:00)
[2019-09-06] MEDS ORDERED: PRINIVIL PO SCH (09:00)
[2019-09-06] MEDS ORDERED: THERA M PLUS PO SCH (09:00)
[2019-09-06 10:13] LABS: ANISOCYTOSIS 2+; BANDS 6 % (0-1); HYPOCHROM 1+; LYMPHS 38 % (21-51); MONO 6 % (1-9); SEGS 50 % (42-75)
[2019-09-06 16:26] VITALS: BP 119/72
--- NOTE | 2019-09-06 20:38 | DISCHARGE SUMMARY ---
ADMISSION DATE: 09/05/2019 DISCHARGE DATE: 09/06/2019 DISCHARGE DIAGNOSES: 1. Symptomatic anemia. 2. Leukemia, not quite sure what type of leukemia but has a history of chronic lymphocytic leukemia with possible acute leukemia and chronic alcohol use. He was admitted for a low hemoglobin and hematocrit. His initial hemoglobin and hematocrit was 6 and 19, after 2 units is up to 7.7 and 24. The patient is asymptomatic, doing well. We will discharge him. There was no evidence of bleeding. This is likely related to his leukemia and treatment associated. We will continue his home medications which include allopurinol 300 daily, aspirin 81 daily, multivitamin daily, lisinopril 10 daily. DISCHARGE CONDITION: Stable. Follow up CBC next week with Dr. Solis. TIME SPENT: 32 minutes. cc: Brian Hyde MD
== END 2019-09-06 18:07 | disposition home or self-care (01) ==
LOC: EDIPHOLD 10:59 → ED 10:59 → 3N 16:35
PROVIDERS: ATTEND Internal Medicine